=== PATIENT | male | born 1940 | race Caucasian/White ===

== ENCOUNTER 2016-10-26 13:24 | Outpatient (CLI) | payer MEDICARE, BC | END 2016-10-26 13:25 | disposition home or self-care (01) | DX: E03.9 Hypothyroidism, unspecified (principal); E78.5 Hyperlipidemia, unspecified; Z13.1 Encounter for screening for diabetes mellitus ==

== ENCOUNTER 2017-02-15 17:20 | Outpatient (CLI) | payer MEDICARE, BC ==
--- NOTE | 2017-02-16 18:15 | XRAY Report ---
CHEST PA AND LATERAL: 02/15/2017 CLINICAL HISTORY: A 76-year-old male with cough and shortness of breath. COMPARISON: Chest PA and lateral 07/19/2012. FINDINGS: Normal cardiac size is seen with mildly ectatic descending thoracic aorta once again noted . Mediastinum is not widened. Pulmonary parenchyma demonstrates some mild scarring in the left upper lobe and right lower lobe. Th is scarring is unchanged as compared to preceding exam. Bones show no significant abnormality. IMPRESSION: NO CHANGE IS NOTED COMPARED TO PRECEDING EXAM DATED 07/19/2012 WITH MINIMAL SCARRING SEEN IN THE LEFT UPPER LOBE AND RIGHT LOWER LOBE. JOB #: [id number] EXT JOB #:[id number]
== END 2017-02-15 17:21 | disposition home or self-care (01) ==
LOC: DI 17:20
PROVIDERS: ATTEND Nurse Practitioner Family
DX: R05 Cough (principal); R06.00 Dyspnea, unspecified; Z86.11 Personal history of tuberculosis
CPT/HCPCS: 71020

== ENCOUNTER 2017-11-09 14:54 | Outpatient (CLI) | payer MEDICARE, BC | END 2017-11-09 14:55 | disposition home or self-care (01) | LOC: SC 14:54 | PROVIDERS: ATTEND Nurse Practitioner Family | DX: G47.33 Obstructive sleep apnea (adult) (pediatric) (principal) | CPT/HCPCS: 99214; G0463; 99212 ==

== ENCOUNTER 2018-02-02 15:25 | Outpatient (CLI) | payer MEDICARE, BC | END 2018-02-02 15:26 | disposition home or self-care (01) | LOC: SC 15:25 | PROVIDERS: ATTEND Nurse Practitioner Family | DX: G47.33 Obstructive sleep apnea (adult) (pediatric) (principal) | CPT/HCPCS: 99213; G0463; 99212 ==

== ENCOUNTER 2018-05-28 22:28 | Emergency (ER) | payer MEDICARE, BC ==
[2018-05-28] MEDS ORDERED: AMOXICILLIN 250 MG CAPSULE PO STA (23:02)
[2018-05-28] MEDS ORDERED: MECLIZINE 12.5 MG TABLET PO STA (23:02)
[2018-05-28] MEDS ORDERED: DEXAMETHASONE 10 MG/ML VIAL PO STA (23:02)
--- NOTE | 2018-05-29 00:38 | CT Report ---
Reason: dizziness for 2 days Procedure Date: 05/28/2018 Accession Number: [id number] / [id number] Procedure: CT - Head W/O CPT Code: FULL RESULT: EXAM: CT HEAD EXAM DATE: 05/28/2018 11:49 PM. CLINICAL HISTORY: Dizziness for 2 days. COMPARISON: Brain CT from 08/23/2016. TECHNIQUE: Multiaxial CT images were obtained from the foramen magnum to the vertex. Reformats: Coronal. IV contrast: None. In accordance with CT protocol optimization, one or more of the following dose reduction techniques were utilized for this exam: automated exposure control, adjustment of mA and/or KV based on patient size, or use of iterative reconstructive technique. FINDINGS: Parenchyma: No intraparenchymal hemorrhage. No evidence of mass, midline shift, or CT findings of acute infarction. Right parietal encephalomalacia is stable. Vital-white differentiation is distinct. Diffuse chronic microangiopathic white matter changes are evident. Extraaxial Spaces: Normal for age. No subdural or epidural collections identified. Ventricles: The ventricles and cortical sulci are enlarged, consistent with age-related tissue loss. Sinuses and orbits: Extensive paranasal sinusitis has worsened with new air-fluid levels in the bilateral maxillary and right frontal sinuses. Postsurgical changes from cataract extractions are noted in the globes. The mastoid sinuses are not opacified. Bones: No evidence of fracture or calvarial defect. Other: Mild intracranial atherosclerosis is noted. IMPRESSION: 1. No acute intracranial process. 2. Worsening paranasal sinusitis with an air-fluid level in the right frontal sinus. Clinical correlation for acute sinusitis is recommended. RADIA
--- NOTE | 2018-05-29 00:55 | ED Physician Documentation ---
PD HPI HEENT - Stated complaint Stated Complaint: DIZZINESS - Chief complaint Chief Complaint: Neuro - History obtained from History obtained from: Patient - History of Present Illness Timing - onset: Yesterday (when getting out of bed, had distinct vertigo which improved with sitting still. He had gotten out of bed quickly to answer door. Symptoms improved and then occurred this morning when got out of bed. Today now feeling vertigo when lies flat, and better if sitting up and still. No other focal deficits.) Timing - details: Abrupt onset, Waxing and waning (improved with sitting still. Worse with movement and lying flat.) Location: Sinuses. No: Right ear, Left ear, Throat Worsens: Position Associated symptoms: Other (some sinus pressure ongoing and a bit worse the past week or more. Has had sinus polyps right side.). No: Fever, Congestion, Rhinorrhea Similar symptoms before: Has not had sx before Recently seen: Clinic (had dental cleaning 3 days ago and felt okay at that time.) Review of Systems Constitutional: denies: Fever, Chills Eyes: denies: Loss of vision, Decreased vision, Photophobia Ears: denies: Ear pain, Drainage/discharge, Tinnitus/ringing Nose: reports: Congestion, Sinus pressure / pain. denies: Rhinorrhea / runny nose Throat: denies: Oral lesions / sores, Sore throat Cardiac: denies: Chest pain / pressure, Palpitations Respiratory: denies: Dyspnea, Cough GI: reports: Nausea, Vomiting (when feeling the most dizzy.) Musculoskeletal: denies: Neck pain, Back pain Neurologic: denies: Focal weakness, Numbness, Near syncope, Confused, Altered mental status, Headache PD PAST MEDICAL HISTORY - Past Medical History Past Medical History: Yes Cardiovascular: Atrial fibrillation Neuro: CVA Endocrine/Autoimmune: HyPOthyroidism Psych: ADD/ADHD Musculoskeletal: Osteoarthritis - Past Surgical History Past Surgical History: Yes General: Appendectomy Cardiovascular: Angioplasty - Present Medications Home Medications: Ambulatory Orders Medication Instructions Recorded Confirmed Levothyroxine [Synthroid] 75 mcg PO QDAC 11/18/14 11/18/14 Loratadine [Claritin] 10 mg PO DAILY 11/18/14 11/18/14 Rivaroxaban [Xarelto] 20 mg PO DAILY 11/18/14 11/18/14 Fluticasone [Flonase] 11/27/16 Sotalol [Betapace] 08/23/16 Cephalexin [Keflex] 500 mg PO TID #20 capsule 05/29/18 Dexamethasone [Decadron] 4 mg PO DAILY #5 tablet 05/29/18 Meclizine HCl [Motion Sickness 25 mg PO Q8H PRN #30 tablet 05/29/18 Relief] - Allergies Allergies/Adverse Reactions: Allergies Allergy/AdvReac Type Severity Reaction Status Date / Time No Known Drug Allergies Allergy Verified 05/28/18 22:40 - Social History Does the pt smoke?: No Smoking Status: Never smoker Does the pt drink ETOH?: No Does the pt have substance abuse?: No - Immunizations Immunizations are current?: Yes - POLST Patient has POLST: No PD ED PE NORMAL - Vitals Vital signs reviewed: Yes - General General: Alert and oriented X 3, No acute distress, Well developed/nourished - HEENT HEENT: PERRL, EOMI (with nystagmus to the left), Pharynx benign - Neck Neck: Supple, no meningeal sign, No adenopathy, No JVD - Cardiac Cardiac: RRR, No murmur - Respiratory Respiratory: Clear bilaterally - Abdomen Abdomen: Soft, Non tender - Derm Derm: Normal color, Warm and dry, No rash - Extremities Extremities: No tenderness to palpate, Normal ROM s pain - Neuro Neuro: Alert and oriented X 3, pit supervisor 2-12 intact, No motor deficit, No sensory deficit, Normal speech Eye Opening: Spontaneous Motor: Obeys Commands Verbal: Oriented GCS Score: 15 Results - Vitals Vitals: Vital Signs - 24 hr 05/28/18 05/29/18 22:34 01:03 Temperature 36.7 C Heart Rate 54 L 50 L Respiratory 18 16 Rate Blood Pressure 144/82 H 135/79 H O2 Saturation 100 95 Oxygen O2 Source Room air - Rads (name of study) head CT Radiology: Prelim report reviewed (normal, no ICH.) PD MEDICAL DECISION MAKING - ED course Complexity details: considered differential (distinct positional vertigo. he is on blood thinner, so got CT to exclude obvious focal bleed. ), d/w patient - Sepsis Event Vital Signs: Vital Signs - 24 hr 05/28/18 05/29/18 22:34 01:03 Temperature 36.7 C Heart Rate 54 L 50 L Respiratory 18 16 Rate Blood Pressure 144/82 H 135/79 H O2 Saturation 100 95 Oxygen O2 Source Room air Departure - Departure Disposition: 01 Home, Self Care Clinical Impression: Acute onset of severe vertigo Acute labyrinthitis Qualifiers: Laterality: unspecified laterality Qualified Code(s): H83.09 - Labyrinthitis, unspecified ear Condition: Stable Record reviewed to determine appropriate education?: Yes Instructions: ED Vertigo Unspecified Follow-Up: Juan Pablo Guido MD [Primary Care Provider] - HERRERA DURAN [Physician No Access] - Prescriptions: Cephalexin [Keflex] 500 mg PO TID #20 capsule Dexamethasone [Decadron] 4 mg PO DAILY #5 tablet Meclizine HCl [Motion Sickness Relief] 25 mg PO Q8H PRN #30 tablet PRN Reason: Vertigo Comments: Your CT scan did not show any signs of bleeding, tumors, swelling or new stroke. It did show the sinusitis in the frontal and maxillary sinuses. This may be contributing to your dizziness if it is causing some inflammation or infection into the inner ear. There could also be some mechanical cause for the dizziness such as otolith that got stirred up with the dental appointment the couple of days before. Will treat with Decadron anti-inflammatory (which will not interact with your blood thinner) as well as cephalexin antibiotic for inflammation and infection. Meclizine 25 mg every 6-8 hours if needed for the vertigo. Follow-up with your nose and throat in a couple of days for recheck. Return sooner if worsening. Activity as able based on symptoms. Discharge Date/Time: 05/29/18 01:04
[2018-05-29 01:05] VITALS: BP 135/79
== END 2018-05-29 01:04 | disposition home or self-care (01) ==
LOC: ED 22:28
DX: R42 Dizziness and giddiness (principal); H83.09 Labyrinthitis, unspecified ear; Z86.73 Personal history of transient ischemic attack (TIA), and cerebral infarction without residual deficits; E03.9 Hypothyroidism, unspecified
CPT/HCPCS: 70450; 93005; 99283; 99284; A9270

== ENCOUNTER 2018-06-06 22:03 | Outpatient (CLI) | payer MEDICARE, BC ==
--- NOTE | 2018-06-06 23:31 | Ultrasound Report ---
Reason: RIGHT LEG SWELLING, PAIN Procedure Date: 06/06/2018 Accession Number: [id number] / [id number] Procedure: US - Duplex Ext Veins Right CPT Code: FULL RESULT: EXAM: RIGHT LOWER EXTREMITY VENOUS ULTRASOUND EXAM DATE: 06/06/2018 10:20 PM. CLINICAL HISTORY: RIGHT LEG SWELLING, PAIN. COMPARISON: None. TECHNIQUE: Real-time sonographic vascular imaging was performed by the formulation scientist through the lower extremity utilizing both color-flow and Doppler spectral analysis. Multiple retail field representative static images were saved for review. FINDINGS: Common Femoral Vein (CFV): Normal. CFV-GSV Junction: Normal. Profunda Femoral Vein (PFV): Normal. Femoral Vein (FV) Prox: Normal. Femoral Vein (FV) Mid: Normal. Femoral Vein (FV) Dist: Normal. Popliteal Vein: Normal. Posterior Tibial Veins: Normal. Peroneal Veins: Normal. Other: Trace fluid in the lateral soft tissues. IMPRESSION: No evidence for deep venous thrombosis. RADIA The call report notification system was initiated by Dr. Todd Lucas at 23:25 hrs on 06/06/18. The above findings were discussed with Alondra Díaz Dr by Dr. Todd Lucas at 23:30 hrs on 06/06/18.
== END 2018-06-06 22:04 | disposition home or self-care (01) ==
LOC: DI 22:03
PROVIDERS: ATTEND Nurse Practitioner Family
DX: M79.604 Pain in right leg (principal); M79.89 Other specified soft tissue disorders

== ENCOUNTER 2018-10-11 11:25 | Outpatient (CLI) | payer MEDICARE, BC | END 2018-10-11 11:26 | disposition home or self-care (01) | LOC: SC 11:25 | PROVIDERS: ATTEND Nurse Practitioner Family | DX: G47.33 Obstructive sleep apnea (adult) (pediatric) (principal) | CPT/HCPCS: 99214; G0463; 99212 ==

== ENCOUNTER 2019-01-11 00:44 | Outpatient (CLI) | payer MEDICARE, BC ==
--- NOTE | 2019-01-11 03:03 | Ultrasound Report ---
Reason: ABDOMINAL AORTIC ANEURYSM,WITHOUT RUPTURE Procedure Date: 01/11/2019 Accession Number: [id number] / [id number] Procedure: US - Duplex Aorta Complete CPT Code: FULL RESULT: EXAM: AORTIC DOPPLER ULTRASOUND EXAM DATE: 01/11/2019 02:22 AM. CLINICAL HISTORY: Abdominal aortic aneurysm, without rupture. COMPARISON: 07/31/2016. TECHNIQUE: Real-time sonographic imaging of retroperitoneal vascular structures, including color-flow, Doppler flow and spectral analysis was performed by the director of professional services. Multiple customer development representative static images were saved for review. FINDINGS: Aorta: The abdominal aorta measures 2.7 cm proximally, and 2.3 cm in the midportion. There is a small distal aortic aneurysm, measuring 3.3 x 3.2 cm. Aorta: Proxima: Sagittal AP 2.7 cm. Mid: Transverse 2.3 x 2.3 cm. Distal: Transverse 3.2 x 3.3 cm. Plaque visualized: Yes. Iliacs: Right Iliac: Transverse 1.5 x 1.6 cm. Left Iliac: Transverse 1.5 x 1.6 cm. Doppler: Prox Aorta PSV: 59 cm/sec. Mid Aorta PSV: 84 cm/sec. Dist Aorta PSV: 58 cm/sec. Prox RCIA PSV: 95 cm/sec. Prox LCIA PSV: 100 cm/sec. Iliac Vessels: The visualized proximal common iliac arteries are normal in caliber. Other: No free fluid. IMPRESSION: Small distal abdominal aortic aneurysm, new. RADIA
== END 2019-01-11 00:45 | disposition home or self-care (01) ==
LOC: DI 00:44
PROVIDERS: ATTEND Nurse Practitioner Family
DX: I71.4 Abdominal aortic aneurysm, without rupture (principal)
CPT/HCPCS: 93978

== ENCOUNTER 2019-07-31 16:24 | Outpatient (CLI) | payer MEDICARE, BC ==
[2019-07-31 17:30] VITALS: BP 118/64
--- NOTE | 2019-07-31 17:30 | SLEEP CARE CONSULTATION ---
Information from patient questionnaire entered by Steff Jolley. I have reviewed and concur with the information entered by Steff Jolley. This document represents the service I personally performed and the decisions made by me, Makenna Malhotra, RN, MSN, CLERK MANAGER. History of Present Illness Previous diagnosis: Very Severe, Obstructive Sleep Apnea-Hypopnea Syndrome AHI: 64 Reason for follow up: other (10 month) Equipment type: CPAP Equipment obtained from: [facility] (having problems with getting supplies and correct mask cushions-and would like to transfer) Mask style: Nasal pillows Mask brand: Everlater (Pilaro) Backup mask available: Yes Last cushion change: 3 months ago CPAP Compliance Data - Data Reviewed with Patient Average duration of nightly device use: 6.75 Compliance rate %: 77.8 (180 days) Current pressure setting (cmH2O): 9 Heated hose settin Average residual AHI: 4.6 Average large leak: 24 sec Subjective Missed days of use due to: reports: travel (with travel CPAP) Patient concerns: reports: air blowing in eyes (from old mask pillows ), mask leak noise (a few times a week), nasal congestion (Controlled with [place] and medications). denies: aerophagia, mask discomfort, condensation in mask/hose, dry mouth, nose, throat, epistaxis Observed to snore while using device: No Current pressure setting perceived as: comfortable Initial [place] Sleepiness Scale score: 6 Current [place] Sleepiness Scale score: 3 Allergies and Home Medications Known drug allergies: No Home medication list reviewed: Yes Allergy and home medication list: Synthroid 75mcg tab one daily Xarelto 20mg tab one daily with dinner Sotalol HCI 80mg tab twice daily Tamsulosin HCI 0.4mg cap one twice daily Optiprostate XTS Tab one daily Loratadine 10mg tab one daily Vitamin C 500mg cap two daily Vitamin B Complex Tab one daily Vitamin B-12 1000mcg tab one daily Vitamin D3 2000IU tab one daily Lysine 500mg tab one daily Magnesium Oxide 400mg tab one daily Zinc Gluconate 50mg tab one daily Glucosamine 750mg tab one twice daily Fluticasone Propionate 50mcg/act nasal Use two sprays each nostril daily Review of Systems Review of systems same as previous: Yes Physical Exam Blood Pressure: 118/64 Cuff size: long Heart Rate: 51 O2 Saturation: 98 Height: 5 ft 10.5 in Weight: 230 lb 9.6 oz Body Mass Index: 32.5 BMI Classification: Obesity Class 1 Impression and Plan 1. Obstructive Sleep Apnea-Hypopnea Syndrome, very severe, with good treatment compliance and good apnea control. The pressure change at last visit reduced residual AHI from 6 to 4.6. On CPAP therapy, the patient has better sleep quality and is more rested overall. For his supply concerns, I will transfer him to a new DME. A DWO will be made. If continued problems, he is to contact us. For his weight goals. We looked at the BMI chart and his goal is to get to 200 pounds. That would bring him from Class 1 obesity to overweight. However, he struggles to lose weight and keep weight off . Thus I discussed how the assistance of a cripple chaser or flexo operator is assisting him to meet his weight loss goals. He would need a referral from his PCP. I also counseled him how significant weight loss could reduce apnea risk , CPAP pressure and over all cardiometabolic health risks. Symptoms to report for pressure reduction discussed. Patient's apnea severity and rationale for treatment to reduce apnea, improve sleep quality and reduce cardiovascular and cerebrovascular events was reviewed. I also reviewed the benefit of consistent device use of CPAP for arrhythmia. * Continue CPAP pressure at 9 cmH2O * Transfer to new DME * Consider diet consultation. * Notify me if snoring with mask or feeling that the pressure is too much or too little * Attempt to lose weight * Return for follow up in 1 year or sooner if concerns arise I spent 100% of this 25 minute visit face to face with the patient with greater than 50% of this was spent time counseling the patient and coordination of care.
== END 2019-07-31 16:25 | disposition home or self-care (01) ==
LOC: SC 16:24
PROVIDERS: ATTEND Nurse Practitioner Family
DX: G47.33 Obstructive sleep apnea (adult) (pediatric) (principal); E66.9 Obesity, unspecified; Z68.32 Body mass index [BMI] 32.0-32.9, adult
CPT/HCPCS: 99214; G0463; 99212

== ENCOUNTER 2019-11-29 11:23 | Outpatient (CLI) | payer MEDICARE, BC ==
[2019-11-29 11:47] LABS: BASOPHILS % (AUTO) 0.4 %; EOSINOPHILS # (AUTO) 0.3 10^3/uL (0.0-0.7); EOSINOPHILS % (AUTO) 5.7 %; HGB - HEMOGLOBIN 13.8 g/dL (14.0-18.0); LYMPHOCYTES # (AUTO) 1.7 10^3/uL (1.5-3.5); LYMPHOCYTES % (AUTO) 32.9 %; MEAN CORPUSCULAR HEMOGLOBIN 30.5 pg (27.0-31.0); MEAN CORPUSCULAR HGB CONC 33.1 g/dL (32.0-36.0); MEAN CORPUSCULAR VOLUME 92.1 fL (80.0-94.0); MEAN PLATELET VOLUME 10.3 fL (7.4-11.4); MONOCYTES # (AUTO) 0.6 10^3/uL (0.0-1.0); MONOCYTES % (AUTO) 11.4 %; NEUTROPHILS # (AUTO) 2.5 10^3/uL (1.5-6.6); PLT - PLATELET COUNT 201 10^3/uL (130-450); RED BLOOD COUNT 4.53 10^6/uL (4.70-6.10); RED CELL DISTRIBUTION WIDTH 14.4 % (12.0-15.0); WHITE BLOOD COUNT 5.1 x10^3/uL (4.8-10.8)
[2019-11-29 12:04] LABS: ALBUMIN 3.9 g/dL (3.2-5.5); ALBUMIN/GLOBULIN RATIO 1.2 (1.0-2.2); ALKALINE PHOSPHATASE 55 IU/L (42-121); ALT ALANINE AMINOTRANSFERASE 21 IU/L (10-60); AST ASPARTATE AMINOTRANSFERASE 25 IU/L (10-42); BILIRUBIN,TOTAL 0.8 mg/dL (0.2-1.0); BUN - BLOOD UREA NITROGEN 21 mg/dL (6-20); CALCIUM 9.2 mg/dL (8.5-10.3); CARBON DIOXIDE - CO2 25 mmol/L (21-32); CHLORIDE 105 mmol/L (101-111); CHOL/HDL RATIO 4.1 (<5.0); CHOLESTEROL 161 mg/dL; GFR - MDRD 72 (>89); GLUCOSE 111 mg/dL (70-100); HDL CHOLESTEROL 39 mg/dL; LDL CHOLESTEROL,CALCULATED 93 mg/dL; LDL/HDL RATIO 2.4 (<3.6); SODIUM 139 mmol/L (135-145); TOTAL PROTEIN 7.1 g/dL (6.7-8.2); VLDL CHOLESTEROL 29 mg/dL
== END 2019-11-29 11:24 | disposition home or self-care (01) ==
LOC: LAB 11:23
PROVIDERS: ATTEND Internal Medicine Cardiovascular Disease
DX: Z00.00 Encounter for general adult medical examination without abnormal findings (principal); E78.5 Hyperlipidemia, unspecified
CPT/HCPCS: 36415; 80053; 80061; 83721; 85025

== ENCOUNTER 2020-08-07 15:39 | Outpatient (CLI) | payer MEDICARE, BC ==
--- NOTE | 2020-08-07 16:19 | SLEEP CARE CONSULTATION ---
Information from patient questionnaire entered by Mona Gómez. I have reviewed and concur with the information entered by Mona Gómez. This document represents the service I personally performed and the decisions made by , Lulu Taylor ARNP. History of Present Illness Service Date and Time: 08/07/2020 1539 Previous diagnosis: Very Severe, Obstructive Sleep Apnea-Hypopnea Syndrome AHI: 64 Reason for follow up: annual (last seen 07/2019) Equipment type: CPAP Equipment obtained from: [facility] (no supplies from them yet due to needed prescription from sleep physician) Mask style: Nasal pillows Backup mask available: Yes (old mask) Last cushion change: rotating through 5 masks, washing daily and rotating every 3 days Year and Where: 2011 [facility] Type of Sleep Study: Polysomnography HPI additional information: BRICE SOUZA was diagnosed to have very severe, AHI 64, obstructive sleep apnea- hypopnea syndrome and returned today for CPAP therapy annual follow-up. CPAP Compliance Data - Data Reviewed with Patient Average duration of nightly device use: 6 h 49 min Compliance rate %: 91.7 Current pressure setting (cmH2O): 9 Heated hose settin Average residual AHI: 4.7 Central apnea: 2.0 Obstructive apnea: 1.5 Hypopnea: 1.2 Average large leak: 1 seconds Subjective Patient concerns: denies: aerophagia, mask discomfort, air blowing in eyes, mask leak noise, condensation in mask/hose, nasal congestion, dry mouth, nose, throat, epistaxis, other Observed to snore while using device: No Current pressure setting perceived as: comfortable On therapy, patient: reports: sleeping better, awakening more refreshed, being more awake and alert during the day, more rested overall. denies: drowsiness while driving Initial [place] Sleepiness Scale score: 3 (in 2008) Current [place] Sleepiness Scale score: 2 Allergies and Home Medications Drug allergies reviewed: Yes (NKDA) Home medication list reviewed: Yes (no changes) Review of Systems Review of systems same as previous: No (He has had sinus surgery and needs heated humidity for his sinuses/nose) Physical Exam Heart Rate: 56 O2 Saturation: 98 Height: 5 ft 10.5 in Weight: 216 lb Body Mass Index: 30.5 BMI Classification: Obese Impression and Plan 1. Obstructive Sleep Apnea-Hypopnea Syndrome, very severe, with good treatment compliance and fair apnea control. On CPAP therapy, the patient has better sleep quality and is more rested overall. He states his ENT specialist has recommended he have warmed humidification with his CPAP machine. It was turned off before because it was causing more issues with his sinuses than benefits. He has since had some sinus surgeries and now needs the humidification. I adjusted this setting online and showed him how to adjust the humidification on the machine. He should now be able to adjust this and use the warmed humidification setting on the machine for his sinuses. He also needs a prescription sent to his DME to update his supplies, this was written and will be faxed. Patient's apnea severity and rationale for treatment to reduce apnea, improve sleep quality and reduce cardiovascular and cerebrovascular events was reviewed. I also reviewed the benefit of consistent device use of CPAP for arrhythmia. * Continue CPAP pressure at 9 cmH2O * Update supplies * Notify me if snoring with mask or feeling that the pressure is too much or too little * Attempt to lose weight * Call this office if any problems using CPAP * Return for follow up in 1 year, or sooner if concerns arise Counseling Topics: Spare mask, Weight loss health impact Visit Type: In Office Time Spent with Patient (minutes): 30 Provider Statement: I spent 100% of the Face to Face Visit with the patient with greater than 50% spent counseling the patient and coordination of care.
== END 2020-08-07 15:40 | disposition home or self-care (01) ==
LOC: SC 15:39
PROVIDERS: ATTEND Nurse Practitioner Family
DX: G47.33 Obstructive sleep apnea (adult) (pediatric) (principal); E66.9 Obesity, unspecified; Z68.30 Body mass index [BMI] 30.0-30.9, adult
CPT/HCPCS: 99213; G0463; 99212

== ENCOUNTER 2020-10-16 19:30 | Outpatient (CLI) | payer MEDICARE, BC | END 2020-10-16 23:59 | disposition home or self-care (01) | LOC: SC 19:30 | PROVIDERS: ATTEND Nurse Practitioner Family | DX: G47.33 Obstructive sleep apnea (adult) (pediatric) (principal) | CPT/HCPCS: G0399 ×2; 95806 ==

== ENCOUNTER 2020-11-07 14:17 | Outpatient (CLI) | payer MEDICARE, BC ==
--- NOTE | 2020-11-07 14:31 | SLEEP CARE CONSULTATION ---
Information from patient questionnaire entered by Mona Gómez. I have reviewed and concur with the information entered by Mona Gómez. This document represents the service I personally performed and the decisions made by , Lulu Taylor ARNP. History of Present Illness Service Date and Time: 11/07/2020 1400 Initial [place] Sleepiness Scale score: 3 (in 2008) Additional HPI information: BRICE SOUZA returns via Telehealth visit for follow up and results of the recently performed home sleep study. He was found to have moderate obstructive sleep apnea with an average AHI of 27.3 and pat at 82%. I explained the pathophysiology behind obstructive sleep apnea. We reviewed that nasal CPAP therapy is the most effective and reliable treatment. Patient counseled not drink alcohol less than 4 hours before bedtime as it can increase snoring and apnea. Patient was cautioned about risks of drowsy driving until sleepiness symptoms resolve. Sleep Study - Results Type of Sleep Study: Home sleep study Year and Where: 2011 [facility] Polysomnography/Home Sleep Study results: Physician Impression: The quality of the study is good. The length of the study is adequate (> 240 minutes). Please also see the tabulated and graphic data. 1. Obstructive Sleep Apnea-Hypopnea (ICD-10 G47.33), moderate, with an AHI of 27.3/hr and pat SaO2 of 82%. During the study, the patient had 178 apneas (176 obstructive, 0 central, 2 mixed) and 1 hypopneas. The longest episode lasted 58.5 seconds. The respiratory events occurred almost exclusively during supine sleep (supine AHI was 51.5 and non-supine, 0.64). 2. Hypoxemia (ICD-10 R09.02), minimal, with the lowest oxygen saturation of 82 % and 0.9 minutes with SaO2 under 90%. Baseline oxygen saturation was normal (Average oxygen saturation was 94%) Allergies and Home Medications Home medication list reviewed: Yes (no changes) Review of Systems Review of systems same as previous: Yes (no changes) Physical Exam Vital signs obtained and entered by: Telehealth visit to reduce Covid exposure during pandemic Height: 5 ft 10.5 in Impression and Plan 1. Obstructive Sleep Apnea-Hypopnea Syndrome, moderate, with lowest oxygen saturation of 82%. Patient HST showing moderate CHICA and re-qualifies patient for CPAP therapy to continue. We will fax copy of new study results and Rx to update supplies to his DME so he may obtain supplies. Positive pressure therapy can benefit heart arrhythmia. Compliance guidelines also reviewed. He states the change to 8.5 cmH2O for his aerophagia has really helped to reduce this in the mornings and he is happy to stay at this pressure setting. * Continue CPAP pressure at 8.5 cmH2O * Notify me if snoring with mask or feeling that the pressure is too much or too little * Call this office if any problems using CPAP * Return for follow up in 1 year, or sooner if concerns arise Visit Type: Telehealth Video Video Type: VSee Patient Location: Home Location of Provider: Office Patient agrees and consents to this telehealth visit type: Yes Patient agrees to have their insurance billed: Yes Time Spent with Patient (minutes): 11 Provider Statement: I spent 100% of the Telehealth Video Call with the patient with greater than 50% spent counseling the patient and coordination of care.
== END 2020-11-07 14:18 | disposition home or self-care (01) ==
LOC: SC 14:17
PROVIDERS: ATTEND Nurse Practitioner Family
DX: G47.33 Obstructive sleep apnea (adult) (pediatric) (principal)

== ENCOUNTER 2021-01-21 14:34 | Outpatient (CLI) | payer MEDICARE, BC | END 2021-01-21 14:35 | disposition home or self-care (01) | LOC: NS 14:34 | PROVIDERS: ATTEND Internal Medicine | DX: Z71.3 Dietary counseling and surveillance (principal); E66.9 Obesity, unspecified; Z68.33 Body mass index [BMI] 33.0-33.9, adult | CPT/HCPCS: 97802 ==

== ENCOUNTER 2021-12-30 16:35 | Outpatient (CLI) | payer MEDICARE, BC ==
--- NOTE | 2021-12-31 16:48 | XRAY Report ---
PROCEDURE: Knee 3 View BILAT INDICATIONS: BILATERAL KNEE PAIN TECHNIQUE: 3 views of the bilateral knee(s) were acquired. COMPARISON: None. FINDINGS: Bones: No fractures or dislocations. No suspicious bony lesions. There is moderate bilateral media l and mild to moderate lateral and moderate bilateral patellofemoral compartment narrowing. Minimal p eriarticular osteophytes are present. No erosions. There is lateral subluxation of the right patella. Soft tissues: Minimal bilateral effusions. No suspicious soft tissue calcifications. IMPRESSION: Tricompartmental arthritic changes most severe medially as above. Reviewed by: Kalee Ramirez MD on 12/31/2021 4:47 PM PDT Approved by: Kalee Ramirez MD on 12/31/2021 4:47 PM PDT Station ID: [id number]
== END 2021-12-30 16:36 | disposition home or self-care (01) ==
LOC: DI 16:35
PROVIDERS: ATTEND Nurse Practitioner Family
DX: M17.0 Bilateral primary osteoarthritis of knee (principal)

== ENCOUNTER 2022-01-08 21:54 | Outpatient (CLI) | payer MEDICARE, BC ==
--- NOTE | 2022-01-09 09:08 | Ultrasound Report ---
PROCEDURE: Pelvic Limited or F/U INDICATIONS: RIGHT INGUINAL PAIN; history of bilateral inguinal hernia repair. TECHNIQUE: Real-time transabdominal scanning was performed of the pelvis (right inguinal region), with image doc umentation. COMPARISON: None. FINDINGS: SOFT TISSUES: No fascial defect is appreciated to suggest a hernia. OTHER: None. IMPRESSION: No sonographic evidence of right inguinal hernia. Reviewed by: Samir Sevilla MD on 01/09/2022 9:07 AM PDT Approved by: Samir Sevilla MD on 01/09/2022 9:07 AM PDT Station ID: [id number]
== END 2022-01-08 21:55 | disposition home or self-care (01) ==
LOC: DI 21:54
PROVIDERS: ATTEND Nurse Practitioner Family
DX: R10.31 Right lower quadrant pain (principal)

== ENCOUNTER 2022-02-03 17:47 | Outpatient (CLI) | payer MEDICARE, BC ==
[2022-02-03] MEDS ORDERED: IOVERSOL 320 50 ML VIAL ONE (18:18)
[2022-02-03] MEDS ORDERED: IOPAMIDOL-300 100 ML VIAL ONE (18:18)
[2022-02-03 18:44] LABS: CALCIUM 9.5 mg/dL (8.5-10.3); CREATININE 1.1 mg/dL (0.6-1.2); POTASSIUM 4.4 mmol/L (3.5-5.0)
[2022-02-03] MEDS ORDERED: IOPAMIDOL-300 100 ML VIAL IVP ONE (19:51)
[2022-02-03] MEDS ORDERED: IOVERSOL 320 50 ML VIAL PO ONE (19:52)
--- NOTE | 2022-02-03 20:10 | CT Report ---
PROCEDURE: Abdomen/Pelvis W INDICATIONS: RIGHT LOWER QUAD PAIN CONTRAST: IV CONTRAST: Isovue 300 ml: 100 PO CONTRAST: *NO PO CONTRAST TECHNIQUE: After the administration of oral and intravenous contrast, 5 mm thick sections acquired from the diap hragms to the symphysis. 5 mm thick coronal and sagittal reformats were acquired. For radiation dos e reduction, the following was used: automated exposure control, adjustment of mA and/or kV accordin g to patient size. COMPARISON: Reference is made to the CT abdomen and pelvis report dated June 19, 2010 FINDINGS: Image quality: Excellent. FINDINGS: Inferior chest: No focal consolidation, pleural effusion, or pneumothorax. A fat-containing right di aphragmatic hernia is seen with defect measuring approximately 2 cm (7-57). No cardiomegaly or perica rdial effusion. Gallbladder: The gallbladder is distended with a smooth thin wall. Biliary tree: No intra-or extrahepatic biliary ductal dilatation. Liver: The liver demonstrates normal enhancement, size, and contour. Scattered hypoattenuating lesion s are seen measuring up to 2 cm, compatible with history Spleen: Normal enhancement, size and morphology is seen. Pancreas: No contour deforming mass or inflammatory change. Adrenals: Normal size without masses. Kidneys/ureters: Symmetric enhancement without evidence of obstructive uropathy. Atrophy of the left kidney. Bilateral cortical hypoattenuating lesions are seen measuring up to 12.5 cm, most consistent with cysts. Additional hypoattenuating lesions are seen in the left parapelvic region, compatible wit h cysts. Vasculature: No evidence of aneurysm or other significant vascular pathology. Calcified edematous ch sal of the aorta. Lymphatic system: No pathologic enlargement by size criteria. GI/mesentery: Trace hiatal hernia. No evidence of intestinal obstruction. Descending/sigmoid divertic ulosis. The appendix is not well demonstrated. Peritoneum/Retroperitoneum: No free intraperitoneal gas or large collection. Urinary bladder: Mild wall thickening, possibly secondary to underdistention. Pelvic organs: Enlargement of the prostate, measuring up to 5.2 cm. Bones/soft tissues: Multifocal degenerative change with grade 1 anterolisthesis at L4-5. Evidence of ventral hernia repair. IMPRESSION: 1.No acute intra-abdominal/pelvic abnormality. 2.Large right upper pole cortical, simple appearing cyst, measuring up to 12.5 cm. 3. Reviewed by: Samir Sevilla MD on 02/03/2022 8:08 PM PDT Approved by: Samir Sevilla MD on 02/03/2022 8:08 PM PDT Station ID: [id number]
== END 2022-02-03 17:48 | disposition home or self-care (01) ==
LOC: DI 17:47
PROVIDERS: ATTEND Nurse Practitioner Family
DX: R10.31 Right lower quadrant pain (principal); N28.1 Cyst of kidney, acquired
CPT/HCPCS: 36415; 74177; 80048; Q9967

== ENCOUNTER 2022-02-19 15:27 | Outpatient (CLI) | payer MEDICARE, BC ==
[2022-02-19 16:20] VITALS: BP 129/75
--- NOTE | 2022-02-19 16:20 | SLEEP CARE CONSULTATION ---
Information from patient questionnaire entered by Mariya Rai MA. I have reviewed and concur with the information entered by Mariya Rai MA. This document represents the service I personally performed and the decisions made by , Lulu Taylor ARNP. History of Present Illness Service Date and Time: 02/19/2022 1527 Previous diagnosis: Moderate, Obstructive Sleep Apnea-Hypopnea Syndrome AHI: 27.3 (in 2020 (V sev AHI 64 1998)) Reason for follow up: annual (LAST SEEN 10/2020, UVALDO, ) Equipment type: CPAP Equipment obtained from: Other (getting supplies; needs updated prescription) Mask style: Nasal pillows Backup mask available: Yes (old mask) Year and Where: 2011 [facility] Type of Sleep Study: Home sleep study HPI additional information: BRICE SOUZA was diagnosed to have moderate, AHI 27.3, obstructive sleep apnea- hypopnea syndrome and returned today for CPAP therapy annual follow-up. Sleep Study - Results Type of Sleep Study: Home sleep study Year and Where: 2011 [facility] CPAP Compliance Data - Data Reviewed with Patient Average duration of nightly device use: 5 hours 55 minutes Compliance rate %: 88.3 (180 days; 180/180 usage) Current pressure setting (cmH2O): 8.0 Average residual AHI: 8.7 Average large leak: 3 seconds Subjective Patient concerns: denies: aerophagia, mask discomfort, air blowing in eyes, mask leak noise, condensation in mask/hose, nasal congestion, dry mouth, nose, throat, epistaxis, other Observed to snore while using device: No Current pressure setting perceived as: comfortable On therapy, patient: reports: sleeping better, awakening more refreshed, being more awake and alert during the day, more rested overall. denies: drowsiness while driving Initial [place] Sleepiness Scale score: 3 (in 2008) Current [place] Sleepiness Scale score: 2 Allergies and Home Medications Home medication list reviewed: Yes (no changes) Allergy and home medication list: Allergies No Known Drug Allergies Allergy (Verified 05/28/18 22:40) Review of Systems Review of systems same as previous: Yes (no changes) Physical Exam Vital signs obtained and entered by: MARU GRISSOM Blood Pressure: 129/75 (RESP 18. PULSE 58, LEFT) Heart Rate: 64 O2 Saturation: 97 (N95 MASK) Height: 5 ft 10 in Weight: 225 lb (W/OCLOTHES) Body Mass Index: 32.3 BMI Classification: Obese Impression and Plan 1. Obstructive Sleep Apnea-Hypopnea Syndrome, moderate, with good treatment compliance and fair apnea control. On CPAP therapy, the patient has better sleep quality and is more rested overall. Patient has a mildly elevated residual AHI at 8.7. Patient really likes current pressure at 8.0 cm H2O. He states he gets good results, and is feeling rested overall in the morning with good energy during the daytime. I will not change his pressure at this time. Patient denies problems with oral dryness, nasal congestion, epistaxis, skin irritation or aerophagia. Patient's apnea severity and rationale for treatment to reduce apnea, improve sleep quality and reduce cardiovascular and cerebrovascular lang nts was reviewed. I also reviewed the benefit of consistent device use of CPAP for arrhythmia. Patient is still waiting to get a replacement for his DreamStation. He is using an older CPAP until it is replaced. 2. Obesity, unspecified. Currently patients BMI is 32.3. Obesity increases the risk of apnea, CPAP pressure requirements and overall health risks especially cardiovascular and diabetes. Thus patient is advised to lose weight. * Continue auto CPAP pressure at 8 cmH2O * Notify me if snoring with mask or feeling that the pressure is too much or too little * Attempt to lose weight * Call this office if any problems using CPAP * Return for follow up in 1 year, or sooner if concerns arise Counseling Topics: Spare mask, Weight loss health impact Visit Type: In Office Time Spent with Patient (minutes): 21 Provider Statement: I spent 100% of the Face to Face Visit with the patient with greater than 50% spent counseling the patient and coordination of care.
== END 2022-02-19 15:28 | disposition home or self-care (01) ==
LOC: SC 15:27
PROVIDERS: ATTEND Nurse Practitioner Family
DX: G47.33 Obstructive sleep apnea (adult) (pediatric) (principal); E66.9 Obesity, unspecified; Z68.32 Body mass index [BMI] 32.0-32.9, adult
CPT/HCPCS: 99213; G0463; 99212

== ENCOUNTER 2023-03-18 22:04 | Outpatient (CLI) | payer MEDICARE, BC ==
--- NOTE | 2023-03-19 09:47 | Ultrasound Report ---
PROCEDURE: Bladder ultrasound INDICATIONS: URGENT DESIRE TO URINATE TECHNIQUE: Real-time scanning was performed of the kidneys and bladder, with image documentation. COMPARISON: CT abdomen pelvis 02/03/2022 FINDINGS: Bladder: Pre-void bladder volume is 124 mL. Post-void residual is 19 mL. Pre-void images demonstra te no intraluminal masses or stones. On pre-void images, both ureteral jets are noted with color Dop pler interrogation. (Of note, ureteral jets may not be detectable in up to 25% of cases due to insuf ficient differences in specific gravity between ureteral and bladder urine). Miscellaneous: No free pelvic fluid. Approximate prostate gland dimensions of 5.1 x 4.2 x 5.3 cm, v olume 59 cc. IMPRESSION: 1. Post void residual urinary bladder volume of 19 mL. 2. Prostatomegaly. Reviewed by: Geo Elias MD on 03/19/2023 9:46 AM PDT Approved by: Geo Elias MD on 03/19/2023 9:46 AM PDT Station ID: [id number]
== END 2023-03-18 22:05 | disposition home or self-care (01) ==
LOC: DI 22:04
PROVIDERS: ATTEND Internal Medicine
DX: N40.1 Benign prostatic hyperplasia with lower urinary tract symptoms (principal); R39.15 Urgency of urination

== ENCOUNTER 2023-05-26 16:48 | Outpatient (CLI) | payer MEDICARE, BC ==
--- NOTE | 2023-05-26 16:40 | SLEEP CARE CONSULTATION ---
Information from patient questionnaire entered by Idalia Singh. I have reviewed and concur with the information entered by Idalia Singh. This document represents the service I personally performed and the decisions made by me, Lulu Taylor ARNP. History of Present Illness Service Date and Time: 05/26/2023 1620 Previous diagnosis: Moderate, Obstructive Sleep Apnea-Hypopnea Syndrome AHI: 27.3 (in 2020 (V sev AHI 64 1998)) Reason for follow up: one month (F/U) Equipment type: CPAP (Dreamstation 2) Equipment obtained from: Other ([facility]: getting supplies) Mask style: Nasal pillows Mask brand: [employer] ([place]) Backup mask available: Yes (old mask) Last cushion change: last night Year and Where: 2011 [facility] [place] Type of Sleep Study: Home sleep study HPI additional information: BRICE SOUZA was diagnosed to have moderate, AHI 27.3, obstructive sleep apnea- hypopnea syndrome and returned today [with spouse] for CPAP therapy one month follow-up. Sleep Study - Results Type of Sleep Study: Home sleep study [facility] Compliance Data - Data Reviewed with Patient Average duration of nightly device use: 6 HRS 21 MINS 31 SEC Compliance rate %: 93.3 (04/23/23-05/22/23) Current pressure setting (cmH2O): 8.5-8.5 Average residual AHI: 6 Central apnea: 2.4 Obstructive apnea: 2 Hypopnea: 1.6 Average large leak: 17 secs Subjective Missed days of use due to: reports: other (2 nights using old machine) Patient concerns: denies: aerophagia, mask discomfort, air blowing in eyes, mask leak noise, condensation in mask/hose, nasal congestion, dry mouth, nose, throat, epistaxis Observed to snore while using device: No Current pressure setting perceived as: comfortable On therapy, patient: reports: drowsiness while driving. denies: sleeping better, awakening more refreshed, being more awake and alert during the day, more rested overall Initial [place] Sleepiness Scale score: 3 (in 2008) Current [place] Sleepiness Scale score: 2 (05/26/23) Allergies and Home Medications Known drug allergies: No Drug allergies reviewed: Yes Home medication list reviewed: Yes (no changes) Allergy and home medication list: Allergies No Known Drug Allergies Allergy (Verified 05/25/23 16:12) Review of Systems Review of systems same as previous: Yes (no changes) Physical Exam Vital signs obtained and entered by: IDALIA Schuster MA Height: 5 ft 10 in (PER PT) Weight: 228 lb (PER PT) Body Mass Index: 32.7 BMI Classification: Obese Impression and Plan 1. Obstructive Sleep Apnea-Hypopnea Syndrome, moderate, with good treatment compliance and fair apnea control. On CPAP therapy, the patient has better sleep quality and is more rested overall. Patient states he cannot tolerate the pressure to 8.5 cmH2O but does not feel he can tolerate anything higher. They have tried 9 cm H2O in the past and it did not feel good for him. We will continue pressure set at 8.5 cmH2O because it is significantly improving his sleep apnea but is slightly ineffective. Goals for apnea control discussed. Patient's apnea severity and rationale for treatment to reduce apnea, improve sleep quality and reduce cardiovascular and cerebrovascular events was reviewed. I also reviewed the benefit of consistent device use of CPAP for arrhythmia. 2. Obesity, unspecified. Currently patients BMI is 32.7. Obesity increases the risk of apnea, CPAP pressure requirements and overall health risks especially cardiovascular and diabetes. Thus patient is advised to lose weight. * Continue auto CPAP pressure at 8.5 cmH2O * Notify me if snoring with mask or feeling that the pressure is too much or too little * Attempt to lose weight * Call this office if any problems using CPAP * Return for follow up in 1 year, or sooner if concerns arise Counseling Topics: Spare mask, Weight loss health impact Visit Type: Telehealth Phone Video Type: Ginette Patient Location: Car Location of Provider: Office Patient agrees and consents to this telehealth visit type: Yes Patient agrees to have their insurance billed: Yes Time Spent with Patient (minutes): 10 Provider Statement: I spent 100% of the Telehealth Phone Call with the patient with greater than 50% spent counseling the patient and coordination of care.
== END 2023-05-26 16:49 | disposition home or self-care (01) ==
LOC: SC 16:48
PROVIDERS: ATTEND Nurse Practitioner Family
DX: G47.33 Obstructive sleep apnea (adult) (pediatric) (principal); E66.9 Obesity, unspecified; Z68.32 Body mass index [BMI] 32.0-32.9, adult

== ENCOUNTER 2024-05-06 17:54 | Emergency (ER) | payer MEDICARE, BC ==
--- NOTE | 2024-05-06 18:06 | ED Physician Documentation ---
PD HPI HEAD INJURY - Stated complaint Stated Complaint: HEAD INJ - Chief complaint Chief Complaint: Trauma Hd/Nk - History obtained from History obtained from: Patient - History of Present Illness Mechanism of head injury: Blow (he struck his head when stood up in basement (low ceiling) with feeling dazed, somewhat forgetful and mild headache. No LOC.) Where head injury occurred: Home Timing - onset: How many hours ago (several), Today Pain level max: 2 Pain level now: 2 Location of injury: Top Quality of pain: Throbbing, Aching Associated symptoms: No: LOC, AMS, Nausea / vomiting Symptoms worsen with: Palpation Contributing factors: Anticoagulated PD PAST MEDICAL HISTORY - Past Medical History Past Medical History: Yes Cardiovascular: Atrial fibrillation Neuro: CVA Endocrine/Autoimmune: HyPOthyroidism Psych: ADD/ADHD Musculoskeletal: Osteoarthritis - Past Surgical History Past Surgical History: Yes General: Appendectomy Cardiovascular: Angioplasty - Present Medications Home Medications: Ambulatory Orders Medication Instructions Recorded Confirmed Levothyroxine [Synthroid] 75 mcg PO QDAC 11/18/14 05/26/23 Loratadine [Claritin] 10 mg PO DAILY 11/18/14 05/26/23 Rivaroxaban [Xarelto] 20 mg PO DAILY 11/18/14 05/26/23 Fluticasone [Flonase] See Rx Instructions .ROUTE .COMPLEX 08/23/16 05/26/23 Sotalol [Betapace] See Rx Instructions .ROUTE .COMPLEX 08/23/16 05/26/23 Meclizine HCl [Motion Sickness 25 mg PO Q8H PRN #30 tablet 05/29/18 05/26/23 Relief] cephALEXin [Keflex] 500 mg PO TID #20 capsule 05/29/18 05/26/23 dexAMETHasone [Decadron] 4 mg PO DAILY #5 tablet 05/29/18 05/26/23 Senna [Senokot] See Rx Instructions .ROUTE .COMPLEX 04/16/23 05/26/23 - Allergies Allergies/Adverse Reactions: Allergies Allergy/AdvReac Type Severity Reaction Status Date / Time No Known Drug Allergies Allergy Verified 05/06/24 17:58 - Social History Does the pt smoke?: No Smoking Status: Never smoker Does the pt drink ETOH?: No Does the pt have substance abuse?: No - Immunizations Immunizations are current?: Yes - POLST Patient has POLST: No PD ED PE NORMAL - Vitals Vital signs reviewed: Yes - General General: Alert and oriented X 3, No acute distress (he appears well. describes feeling some off balance and confused but seems okay in gait generally. Conversant. ), Well developed/nourished - HEENT HEENT: Other (tende top of head. Neck not tender. ) - Neck Neck: Supple, no meningeal sign, No bony TTP - Neuro Neuro: Alert and oriented X 3, internal recruiter 2-12 intact, No motor deficit, No sensory deficit, Normal speech, Other Eye Opening: Spontaneous Motor: Obeys Commands Verbal: Oriented GCS Score: 15 Results - Vitals Vitals: Oxygen O2 Source Room air - Rads (name of study) head CT Relevant Findings:: Prelim report reviewed (no ICH.), EMP independent interpretation of test PD Medical Decision Making - ED course Complexity details: reviewed results (head CT without ICH. ), considered differential (struck head with mild concussive symtoms. on anticoag due to atrial fib. WIll get CT. 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 You can see the prior stroke area just incidentally. Your symptoms would suggest a mild concussive effect. Typically this will imp rove over 2 or 3 days or so. Sometimes a week or more. Follow-up with your primary care Wednesday as planned. Tylenol every 4-6 hours if needed for headaches or pains. Otherwise be aware/cognizant that you are thought process or concentration can be off as well as balance and such. Physical symptoms such as headache or such can occur as well. Also common with mild concussive effect is sleep disruption and irritability. Again these typically improve over several days. Forms: PCP List Discharge Date/Time: 05/06/24 19:11
[2024-05-06 19:15] VITALS: BP 134/82; O2SAT 100
--- NOTE | 2024-05-06 19:35 | CT Report ---
PROCEDURE: Head WO INDICATIONS: head injury, on DOAC TECHNIQUE: Noncontrast 4.5 mm thick angled axial sections acquired from the foramen magnum to the vertex. For r adiation dose reduction, the following was used: automated exposure control, adjustment of mA and/or kV according to patient size. COMPARISON: None. FINDINGS: Image quality: Excellent. CSF spaces: Basal cisterns are patent. No extra-axial fluid collections. Ventricles are normal in size and shape. Brain: No midline shift. No intracranial masses or hemorrhage. Vital-white matter interface is norm al. Right temporoparietal encephalomalacia is present consistent with the sequela of prior ischemia. Skull and face: Calvarium and visualized facial bones are intact, without suspicious lesions. Sinuses: Visualized sinuses and mastoids are clear. IMPRESSION: No acute intracranial pathology. Reviewed by: Terri Shah MD on 05/06/2024 6:34 PM KAUSHAL Approved by: Terri Shah MD on 05/06/2024 6:34 PM KAUSHAL Station ID: [id number]
== END 2024-05-06 19:11 | disposition home or self-care (01) ==
LOC: ED 17:54
DX: S06.0X0A Concussion without loss of consciousness, initial encounter (principal); S00.93XA Contusion of unspecified part of head, initial encounter; W22.8XXA Striking against or struck by other objects, initial encounter; Y92.008 Other place in unspecified non-institutional (private) residence as the place of occurrence of the external cause; I48.91 Unspecified atrial fibrillation; E03.9 Hypothyroidism, unspecified; Z86.73 Personal history of transient ischemic attack (TIA), and cerebral infarction without residual deficits; Z79.01 Long term (current) use of anticoagulants; Z79.899 Other long term (current) drug therapy
CPT/HCPCS: 36415; 99283; 99284